=== PATIENT | female | born 1935 | race Native Hawaiian/Other Pacific Islander ===

== ENCOUNTER 2018-04-04 09:41 | Outpatient (CLI) | payer OTHER ==
[2018-04-04 10:02] LABS: POTASSIUM 3.9 mmol/L (3.6-5.2)
== END 2018-04-04 22:48 | disposition home or self-care (01) ==
LOC: LAB 09:41
PROVIDERS: Internal Medicine
DX: J20.9 Acute bronchitis, unspecified (principal); E87.1 Hypo-osmolality and hyponatremia; R73.09 Other abnormal glucose; I10 Essential (primary) hypertension
CPT/HCPCS: 80048

== ENCOUNTER 2018-04-21 10:05 | Outpatient (CLI) | payer OTHER ==
[2018-04-21 10:26] LABS: POTASSIUM 4.5 mmol/L (3.6-5.2)
== END 2018-04-21 20:34 | disposition home or self-care (01) ==
LOC: LAB 10:05
PROVIDERS: Internal Medicine
DX: E87.6 Hypokalemia (principal)
CPT/HCPCS: 80048